=== PATIENT | male | born 1930 ===

== ENCOUNTER 2017-08-11 09:51 | Outpatient (CLI) | payer MEDICARE, OTHER ==
--- NOTE | 2017-08-11 10:08 | RAD ---
RADIOGRAPH CHEST 2 VIEWS: HISTORY: An 87-year-old male with dyspnea. FINDINGS: The thoracic aorta is tortuous and ectatic. There is no evidence of air space density, pneumothorax, or pulmonary edema. There is no cardiomegaly or pleural effusion. IMPRESSION: 1) No acute cardiopulmonary findings. 2) Ectasia of thoracic aorta. meghan [] POS: [facility]
== END 2017-08-11 09:52 | disposition home or self-care (01) ==
LOC: RAD 09:51
PROVIDERS: ATTEND Internal Medicine Critical Care Medicine
DX: R06.00 Dyspnea, unspecified (principal); I77.810 Thoracic aortic ectasia
CPT/HCPCS: 71020